=== PATIENT | male | born 1960 | race Caucasian/White ===

== ENCOUNTER 2021-11-25 03:54 | Inpatient (IN) | payer MEDICARE, OTHER ==
[~2021-11-25] VITALS: Ht 180.3 cm; Wt 121.7 kg
[~2021-11-25 03:54] MED LIST: CIPR500T2 PO; CYCL10TA19 PO; DOCU100T11 PO; OXYC1TAB15 PO; Oxycodone Hcl/Acetaminophen PO; TAMS0.4C97 PO
[2021-11-25] MEDS ORDERED: NITROGLYCERIN SUBLINGUAL 0.4 MG BOTTLE OF 25. SL PRN ×2 (04:15→05:45)
[2021-11-25] MEDS ORDERED: MORPHINE SULFATE 2 MG/ML INJ. IVP ONE (04:15)
[2021-11-25 04:27] LABS: BASO # 0.1 x10^3/uL (0.0-0.2); BASO % 1 % (0-3); EOS # 0.1 x10^3/uL (0.0-0.7); EOS % 1 % (0-3); HEMATOCRIT 43.8 % (39.0-53.0); HEMOGLOBIN 14.4 g/dL (13.0-17.5); LYMPH # 1.6 x10^3/uL (1.0-4.8); LYMPH % 25 % (24-48); MEAN CORPUSCULAR HEMOGLOBIN 30 pg (25-35); MEAN CORPUSCULAR HGB CONC 33 g/dL (31-37); MEAN CORPUSCULAR VOLUME 91 fL (79-100); MONO # 0.4 x10^3/uL (0.0-1.1); MONO % 7 % (0-9); NEUT # 4.2 x10^3/uL (1.8-7.7); NEUT % 66 % (31-73); PLATELET COUNT 134 x10^3/uL (140-400); RED BLOOD COUNT 4.82 x10^6/uL (4.30-5.70); RED CELL DISTRIBUTION WIDTH 13.7 % (11.5-14.5); WHITE BLOOD COUNT 6.3 x10^3/uL (4.0-11.0)
[2021-11-25] MEDS: NITROGLYCERIN SUBLINGUAL 0.4 MG BOTTLE OF 25. SL PRN ×5 (04:32→17:10)
[2021-11-25 04:37] LABS: CALCIUM 9.4 mg/dL (8.5-10.1); CREATININE 1.2 mg/dL (0.7-1.3); GFR 61.3; POTASSIUM 3.6 mmol/L (3.5-5.1)
[2021-11-25 04:42] LABS: PROTHROMBIN TIME PATIENT 13.5 SEC (11.7-14.0)
[2021-11-25 04:43] LABS: ALBUMIN 3.4 g/dL (3.4-5.0); ALBUMIN/GLOBULIN RATIO 0.9 (1.0-1.7); TOTAL BILIRUBIN 0.5 mg/dL (0.2-1.0)
--- NOTE | 2021-11-25 04:51 | RAD ---
EXAM: XR CHEST 1V 11/25/2021 4:17 AM CLINICAL INDICATION: Chest pain COMPARISON: None TECHNIQUE: AP upright view of the chest FINDINGS: The heart is normal in size. Lungs are well-expanded. No consolidation, pleural effusion, or pneumothorax. IMPRESSION: No acute cardiopulmonary abnormality. Electronically signed by: Gena Sabillon MD (11/25/2021 4:48 AM) [facility]
[2021-11-25 04:57] LABS: D-DIMER 0.39 ug/mlFEU (0.00-0.50)
--- NOTE | 2021-11-25 05:36 | PHYS DOC ---
Past Medical History Past Medical History: Kidney Stone, Other Additional Past Medical Histor: HEPATITIS C Past Surgical History: Tonsillectomy, Other Additional Past Surgical Histo: Knee surgery, cervical fusion Smoking Status: Current Every Day Smoker Alcohol Use: Occasionally Drug Use: None Adult General Chief Complaint Chief Complaint: CHEST PAIN-CARDIAC NATURE HPI HPI The patient is a 61-year-old male with a history of tobacco abuse and without o ther known medical problems for which he takes daily medications. He presents for evaluation of dull, pressure-like retrosternal nonexertional and nonpleuritic chest discomfort with radiation to the left arm with onset at 9 PM. Associated nausea and diaphoresis. Patient waited a few hours and when symptoms had not improved, elected emergency department evaluation. Severity of discomfort 10 out of 10 prior to sublingual nitroglycerin and aspirin administered by EMS. Severity of discomfort about 4 out of 10 on arrival here. EKG nonischemic. Vital signs generally appropriate aside from borderline oxygen saturation on room air. Review of Systems Review of Systems A 12 point review of systems was completed and was negative except where noted in HPI above. Current Medications Current Medications Current Medications Medications (Trade) Dose Ordered Sig/Veronica Start Time Stop Time Status Last Admin Dose Admin Morphine Sulfate (Morphine Sulfate) 2 mg 1X ONCE 11/25/21 04:15 11/25/21 04:17 DC 11/25/21 04:27 2 MG Nitroglycerin (Nitrostat) 0.4 mg PRN Q5MIN PRN 11/25/21 04:15 Allergies Allergies Allergies Coded Allergies Type Severity Reaction Last Updated Verified codeine Adverse Reaction Intermediate nausea and vomiting 11/25/21 Yes Physical Exam Physical Exam 61-year-old male appearing nontoxic and in no acute distress. Head is normocephalic and atraumatic. Neck is supple and nontender. Oropharynx is moist. Lungs are clear to auscultation at all stations. There is a normal S1 and S2 without rubs or gallops and capillary refill is appropriate, less than 2 seconds globally. Abdomen is soft, nontender and nondistended. Skin is warm and dry and without cyanosis, clubbing or edema. Psychiatrically, the patient demonstrates appropriate mood and affect and is alert. Evaluation of the extremities reveals BUEs and BLEs neurovascularly intact distally with strength out of 5, sensation intact light touch in all nerve distributions, radial, DP and PT pulses 2+ and equal bilaterally, capillary refill less than 2 seconds, hands and feet warm and well-perfused. No dependent peripheral edema distally. No calf tenderness or swelling bilaterally. Homans test negative bilaterally. Current Patient Data Vital Signs Vital Signs Date Time Temp Pulse Resp B/P (MAP) Pulse Ox O2 Delivery O2 Flow Rate FiO2 11/25/21 04:56 69 163/82 11/25/21 04:27 20 94 Nasal Cannula 2.0 11/25/21 03:55 97.4 97.4 Lab Values Laboratory Tests Test 11/25/21 04:20 White Blood Count 6.3 x10^3/uL (4.0-11.0) Red Blood Count 4.82 x10^6/uL (4.30-5.70) Hemoglobin 14.4 g/dL (13.0-17.5) Hematocrit 43.8 % (39.0-53.0) Mean Corpuscular Volume 91 fL (79-100) Mean Corpuscular Hemoglobin 30 pg (25-35) Mean Corpuscular Hemoglobin Concent 33 g/dL (31-37) Red Cell Distribution Width 13.7 % (11.5-14.5) Platelet Count 134 x10^3/uL (140-400) L Neutrophils (%) (Auto) 66 % (31-73) Lymphocytes (%) (Auto) 25 % (24-48) Monocytes (%) (Auto) 7 % (0-9) Eosinophils (%) (Auto) 1 % (0-3) Basophils (%) (Auto) 1 % (0-3) Neutrophils # (Auto) 4.2 x10^3/uL (1.8-7.7) Lymphocytes # (Auto) 1.6 x10^3/uL (1.0-4.8) Monocytes # (Auto) 0.4 x10^3/uL (0.0-1.1) Eosinophils # (Auto) 0.1 x10^3/uL (0.0-0.7) Basophils # (Auto) 0.1 x10^3/uL (0.0-0.2) Prothrombin Time 13.5 SEC (11.7-14.0) Prothrombin Time INR 1.1 (0.8-1.1) Activated Partial Thromboplast Time 35 SEC (24-38) D-Dimer (Tammy) 0.39 ug/mlFEU (0.00-0.50) Sodium Level 135 mmol/L (136-145) L Potassium Level 3.6 mmol/L (3.5-5.1) Chloride Level 102 mmol/L (98-107) Carbon Dioxide Level 24 mmol/L (21-32) Anion Gap 9 (6-14) Blood Urea Nitrogen 11 mg/dL (8-26) Creatinine 1.2 mg/dL (0.7-1.3) Estimated GFR (Cockcroft-Gault) 61.3 BUN/Creatinine Ratio 9 (6-20) Glucose Level 224 mg/dL (70-99) H Calcium Level 9.4 mg/dL (8.5-10.1) Total Bilirubin 0.5 mg/dL (0.2-1.0) Aspartate Amino Transferase (AST) 18 U/L (15-37) Alanine Aminotransferase (ALT) 37 U/L (16-63) Alkaline Phosphatase 100 U/L (46-116) Troponin I High Sensitivity 255 ng/L (4-75) H BI-Iwt-I-Type Natriuretic Peptide 269 pg/mL (0-124) H Total Protein 7.0 g/dL (6.4-8.2) Albumin 3.4 g/dL (3.4-5.0) Albumin/Globulin Ratio 0.9 (1.0-1.7) L Laboratory Tests 11/25/21 04:20 Laboratory Tests 11/25/21 04:20 EKG EKG Sinus rhythm, rate 65, first-degree AV block, no acute ST elevation or depression, UT 206, QRS 84, QTc 442, EP interpretation. Nonischemic tracing. Radiology/Procedures Radiology/Procedures EXAM: XR CHEST 1V 11/25/2021 4:17 AM CLINICAL INDICATION: Chest pain COMPARISON: None TECHNIQUE: AP upright view of the chest FINDINGS: The heart is normal in size. Lungs are well-expanded. No consolidation, pleural effusion, or pneumothorax. IMPRESSION: No acute cardiopulmonary abnormality. Electronically signed by: Gena Sabillon MD (11/25/2021 4:48 AM) [facility] DICTATED and SIGNED BY: GENA SABILLON MD DATE: 11/25/21 1921 Course & Med Decision Making Course & Med Decision Making Work-up as above is notable primarily for evidence of NSTEMI with significantly elevated high-sensitivity troponin. Overall scenario is most consistent with Type I NSTEMI. Patient received a full-strength aspirin and nitroglycerin on the way here. Will initiate heparin and plan for admission for cardiology consultation, likely cardiac catheterization and further care. Dr. Ghosh graciously accepts. Critical care time was 47 minutes. Dragon Disclaimer Dragon Disclaimer This electronic medical record was generated, in whole or in part, using a voice recognition dictation system. Departure Departure Impression: Primary Impression: NSTEMI (non-ST elevated myocardial infarction) Disposition: ADMITTED INPATIENT Condition: GUARDED Referrals: SUSAN GHOSH MD (PCP) JAREK BATES MD Nov 25, 2021 05:36
[2021-11-25] MEDS ORDERED: ONDANSETRON PF 4 MG/2 ML VIAL. IVP PRN (05:45)
[2021-11-25] MEDS ORDERED: HEPARIN for IV BOLUS 10,000 UNIT/10 ML VIAL. IV PRN (05:45)
[2021-11-25] MEDS ORDERED: HEPARIN for IV BOLUS 10,000 UNIT/10 ML VIAL. IV ONE (05:45)
[2021-11-25] MEDS ORDERED: HEPARIN 25,000UTS/250ML PREMIX 250 ML IV PRN (05:45)
[2021-11-25] MEDS: fentaNYL PF VIAL 100 MCG/2 ML VIAL IVP PRN ×5 (06:01→19:28)
[2021-11-25 06:35] VITALS: BP 175/88
[2021-11-25] MEDS ORDERED: IODIXANOL 320 MG/ML 100 ML VIAL. ONE ×3 (07:49→10:15)
[2021-11-25] MEDS ORDERED: LIDOCAINE 1% PF 2 ML VIAL. ONE (07:49)
[2021-11-25] MEDS ORDERED: HEPARIN for ARTERIAL LINE 1,500 ML ONE (07:49)
--- NOTE | 2021-11-25 08:30 | PDOC2 ---
CARDIOLOGY CONSULT NOTE DATE OF SERVICE: DATE: 11/25/21 TIME: 08:27 CHIEF COMPLAINT: Chest discomfort HPI: Femi is a pleasant 61-year-old man who comes into the hospital with acute onset of chest pain yesterday evening. He reports pain at approximately 10 out of 10 that started at 11 PM last night requiring him to call 911. Upon arrival of the emergency services he was given aspirin and nitroglycerin which helped subside his pain. Initial evaluation in the ER demonstrated no acute EKG changes but the patient was noted to have an elevated troponin who was started on appropriate medical therapy and admitted to the floor for further evaluation. This morning the patient continues to complain of left-sided chest pain approximately 3 out of 10. He denies any significant associated alleviating or aggravating factors. No syncope or palpitations. At baseline the patient is mostly sedentary due to prior Workmen's Comp. issue including cervical spine surgery. No prior cardiovascular history PMHX: No significant past medical history SOCHX: Patient is . Denies any alcohol but does smoke. He also uses marijuana occasionally. FAMHX: Noncontributory CURRENT MEDS: Current Medications Medications (Trade) Dose Ordered Sig/Veronica Route PRN Reason Start Time Stop Time Status Last Admin Dose Admin Nitroglycerin (Nitrostat) 0.4 mg PRN Q5MIN PRN SL CHEST PAIN 11/25/21 04:15 11/25/21 04:56 Morphine Sulfate (Morphine Sulfate) 2 mg 1X ONCE IVP 11/25/21 04:15 11/25/21 04:17 DC 11/25/21 04:27 Heparin Sodium (Porcine) (Heparin Sodium) 4,000 unit 1X ONCE IV 11/25/21 05:45 11/25/21 05:46 DC 11/25/21 06:05 Heparin Sodium/ Dextrose 250 ml @ 14.172 mls/ hr CONT PRN IV PER PROTOCOL 11/25/21 05:45 11/25/21 06:08 Fentanyl Citrate (Fentanyl 2ml Vial) 50 mcg PRN Q2HR PRN IVP PAIN 11/25/21 05:45 11/25/21 06:01 ALLERGIES: Allergies Coded Allergies Type Severity Reaction Last Updated Verified codeine Adverse Reaction Intermediate nausea and vomiting 11/25/21 Yes ROS: Negative for 10 out of 14 systems reviewed unless otherwise mentioned above in HPI PHYSICAL EXAM: Vital Signs/I&O: Vital Signs Date Time Temp Pulse Resp B/P (MAP) Pulse Ox O2 Delivery O2 Flow Rate FiO2 11/25/21 06:35 97.9 68 20 175/88 (117) 97 Room Air 97.9 11/25/21 06:34 2.0 Physical Exam: The patient appeared well nourished and normally developed. Head exam is unremarkable. No scleral icterus or corneal arcus noted. Neck is without jugular venous distension, thyromegaly, or carotid bruits. Carotid upstrokes are brisk bilaterally. Lungs are clear to auscultation and percussion. Cardiac exam reveals the PMI to be normally sized and situated. Rhythm is regular. First and second heart sounds normal. No murmurs, rubs or gallops. Abdominal exam reveals normal bowel sounds, no masses, no organomegaly and no aortic enlargement. Extremities are nonedematous and both femoral and pedal pulses are normal. Msk: No traumua Neuro: No focal deficits DIAGNOSTIC TESTING: Troponin minimally elevated EKG is not available for review but based on the ER physician signout the EKG was unremarkable Lab Laboratory studies reviewed ASSESSMENT: 1. Acute coronary syndrome with presumed non-ST elevation PR PLAN: 1. Plan for cardiac catheterization. Risks and benefits discussed with the patient and his and they are agreeable to proceed. STEPHEN LATIF MD Nov 25, 2021 08:30
--- NOTE | 2021-11-25 08:31 | PDOC ---
MODERATE SEDATION ASSESSMENT RISKS/ALTERNATIVES Risks/Alternatives Risks and alternatives of this type of sedation and procedure discussed with: RISK/ALTERNATIVES: Patient H & P ON CHART H & P H & P on chart and reviewed for co-morbid conditions and appropriate labs. H&P ON CHART: Yes STATUS PREG STATUS ASSESSED: N/A MEDS/ALLERGIES REVIEWED Meds/Allergies Reviewed Medications and Allergies including time and route of recently administered narcotics and sedatives. MEDS/ALLERGIES REVIEWED: Yes ASA RATING ASA RATING: II AIRWAY ASSESSMENT Airway Assessment Airway patency, oral function limitations, presence of caps, crowns, dentures, partials, and ability to extend neck assessed. AIRWAY ASSESSMENT: Yes MALLAMPATI SCORE MALLAMPATI SCORE: II PRE-SEDATION ASSESSMENT PRE-SEDATION ASSESSMENT: Yes STEPHEN LATIF MD Nov 25, 2021 08:31
--- NOTE | 2021-11-25 08:32 | PDOC ---
Provider Note Date of Service: DATE: 11/25/21 TIME: 08:30 Provider Note [id number] Justifications for Admission Other Justification SCOTTY WALLS MD Nov 25, 2021 08:32
[2021-11-25] MEDS ORDERED: fentaNYL PF VIAL 100 MCG/2 ML VIAL ONE ×2 (08:52→09:25)
[2021-11-25] MEDS ORDERED: NITROGLYCERIN 200 MCG/2 ML SYRINGE FOR CATH/VASC LAB. ONE ×4 (08:52→10:17)
[2021-11-25] MEDS ORDERED: VERAPAMIL 5 MG/2 ML VIAL. ONE (08:52)
[2021-11-25] MEDS ORDERED: MIDAZOLAM HCL/PF 2 MG/2 ML VIAL. ONE ×2 (08:52→09:25)
[2021-11-25] MEDS ORDERED: HEPARIN for IV BOLUS 10,000 UNIT/10 ML VIAL. ONE (08:52)
[2021-11-25] MEDS ORDERED: LIDOCAINE 1% Multi-Dose 20 ML VIAL. ONE (09:23)
[2021-11-25] MEDS ORDERED: TIROFIBAN 5MG -0.9% NS 100 ML IV ONE (09:35)
[2021-11-25] MEDS ORDERED: LIDOCAINE 2% Multi-Dose 20 ML VIAL. IJ ONE (10:00)
[2021-11-25] MEDS ORDERED: LIDOCAINE 1% PF 2 ML VIAL. INJ ONE (10:00)
[2021-11-25] MEDS ORDERED: NITROGLYCERIN 200 MCG/2 ML SYRINGE FOR CATH/VASC LAB. IART ONE (10:00)
[2021-11-25] MEDS ORDERED: IODIXANOL 320 MG/ML 100 ML VIAL. IART ONE (10:00)
[2021-11-25] MEDS ORDERED: VERAPAMIL 5 MG/2 ML VIAL. IART ONE (10:00)
[2021-11-25] MEDS ORDERED: fentaNYL PF VIAL 100 MCG/2 ML VIAL IV ONE (10:00)
[2021-11-25] MEDS ORDERED: TIROFIBAN 5MG -0.9% NS 100 ML IV PRN (10:00)
[2021-11-25] MEDS ORDERED: MIDAZOLAM HCL/PF 2 MG/2 ML VIAL. IV ONE (10:00)
[2021-11-25] MEDS ORDERED: HEPARIN for IV BOLUS 10,000 UNIT/10 ML VIAL. IART ONE (10:00)
[2021-11-25] MEDS ORDERED: hydrALAZINE 20 MG/ML VIAL. ONE (10:09)
[2021-11-25] MEDS ORDERED: PRASUGREL 10 MG TABLET. ONE (10:25)
[2021-11-25] MEDS ORDERED: PRASUGREL 10 MG TABLET. PO ONE (10:30)
[2021-11-25] MEDS ORDERED: hydrALAZINE 20 MG/ML VIAL. IVP ONE ×2 (10:30→18:45)
--- NOTE | 2021-11-25 10:41 | HP ---
DATE OF SERVICE: 11/25/2021 ADMIT DATE: 11/25/2021 CHIEF COMPLAINT: Chest pain. HISTORY OF PRESENT ILLNESS: A 61-year-old white male patient of Dr. Ghosh, has no previous cardiovascular history, sleeping, was awakened by fairly substantial pressure like mid chest pain that radiated to his left neck, shoulder and arm. Ambulance came and after a couple of nitroglycerin and aspirin, his pain subsided to some degree and it is better now. He has had no recent exertional chest pain or any other new symptoms. EKGs were normal, but troponin was mildly elevated to 255 on first lab draw. MEDICATIONS: No home meds. ALLERGIES: CODEINE. PAST MEDICAL HISTORY: No previous cardiovascular history. PAST SURGICAL HISTORY: He has had orthopedic surgeries. SOCIAL HISTORY: Smokes about a pack a day since teenage years. , light alcohol drinker, employed. FAMILY HISTORY: Unremarkable. REVIEW OF SYSTEMS: No other complaints. PHYSICAL EXAMINATION: ENT: All within normal limits. NECK: No bruits, nodes or masses. LUNGS: Clear. CARDIOVASCULAR: Regular rate. No irregular beat or murmur. ABDOMEN: Benign, nontender. EXTREMITIES: Excellent pedal and radial pulses. No clubbing, cyanosis or edema. NEUROLOGIC: Physiologic and nonfocal. ASSESSMENT: Chest pain, suspicious for unstable angina or non-ST elevated myocardial infarction. PLAN: Dr. Clark plans cardiac cath today to further evaluate source of the pain, which most certainly is ischemic in nature. KOJO/FERNANDEZ/IRINA CARTER: KOJO/janel TID: [id number]
[2021-11-25] MEDS ORDERED: IV NORMAL SALINE 1000ML BAG 1,000 ML IV ONE (10:45)
[2021-11-25 10:46] VITALS: BP 172/84
--- NOTE | 2021-11-25 13:46 | EKG ---
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
[2021-11-25 15:00] VITALS: BP 139/83
[2021-11-25] MEDS: CARVEDILOL 3.125 MG TABLET. PO SCH (16:14)
[2021-11-25] MEDS: ASPIRIN ENTERIC COATED 81 MG TABLET.DR. PO SCH (16:14)
[2021-11-25] MEDS ORDERED: LABETALOL 20 MG/4 ML DISP.SYRIN. IVP PRN (18:45)
[2021-11-25 19:10] VITALS: BP 201/81
[2021-11-25 19:30] VITALS: BP 161/76
[2021-11-25] MEDS ORDERED: ALPRAZolam 0.5 MG TABLET PO PRN (19:45)
[2021-11-25] MEDS ORDERED: ATORVASTATIN CALCIUM 40 MG TABLET. PO SCH (21:00)
--- NOTE | 2021-11-25 21:47 | NUR ---
Admit for CP. Had heart cath this morning. Stent to LAD and 2 stents to RCA. Reports pain to right wrist cath site and right groin cath site but admits to having anxiety more then pain. Gave Fentanyl for pain. Spoke to Dr Ghosh. Obtained orders for prn Xanax. Gave Xanax as ordered. Patient is sleeping at this time. BP improved. Call light at hand.
[2021-11-25 22:40] VITALS: BP 149/75
[2021-11-26 03:50] VITALS: BP 148/83
[2021-11-26 05:56] LABS: BASO % 1 % (0-3); EOS % 1 % (0-3); HEMATOCRIT 44.6 % (39.0-53.0); HEMOGLOBIN 14.8 g/dL (13.0-17.5); LYMPH # 1.8 x10^3/uL (1.0-4.8); LYMPH % 25 % (24-48); MEAN CORPUSCULAR HEMOGLOBIN 30 pg (25-35); MEAN CORPUSCULAR HGB CONC 33 g/dL (31-37); MEAN CORPUSCULAR VOLUME 91 fL (79-100); MONO # 0.7 x10^3/uL (0.0-1.1); MONO % 9 % (0-9); NEUT # 4.8 x10^3/uL (1.8-7.7); NEUT % 65 % (31-73); PLATELET COUNT 159 x10^3/uL (140-400); RED BLOOD COUNT 4.88 x10^6/uL (4.30-5.70); RED CELL DISTRIBUTION WIDTH 13.9 % (11.5-14.5); WHITE BLOOD COUNT 7.3 x10^3/uL (4.0-11.0)
[2021-11-26 06:09] LABS: ALBUMIN 3.2 g/dL (3.4-5.0); ALBUMIN/GLOBULIN RATIO 0.9 (1.0-1.7); CALCIUM 8.7 mg/dL (8.5-10.1); CREATININE 1.2 mg/dL (0.7-1.3); GFR 61.3; POTASSIUM 3.6 mmol/L (3.5-5.1); TOTAL BILIRUBIN 0.7 mg/dL (0.2-1.0); TOTAL PROTEIN 6.8 g/dL (6.4-8.2)
[2021-11-26 06:12] LABS: CHOLESTEROL/HDL RATIO 5.8
[2021-11-26 07:00] VITALS: BP 146/73
--- NOTE | 2021-11-26 07:16 | CARD ---
MR#: [id number] Date of Study: 11/25/2021 Ordering Physician: STEPHEN CLARK, Referring Physician: STEPHEN CLARK, Tech: Meredith Roy RTR APPROVED REPORT Technologist: Meredith Roy RTR Nurse: Bel Fong RN Procedure(s) performed: FLuoro time: 16.4 min dose: 221.7 gycm2 contrast: 256cc moderate sedation: 95min LHC, Coronary angiography Complex PCI of the LAD with IVUS Complex PCI of the RCA with IVUS HISTORY The patient is a 61 year-old male with a history of : tobacco history() , hypertension, dyslipidemia. INDICATION The indication(s) include : non-STEMI . [facility] Clinical Frailty Scale [facility] Clinical Frailty Scale: Mildly Frail Heart Failure Heart Failure: No CASE TECHNIQUE IV conscious sedation was used throughout procedure with appropriate monitoring and was performed in the presence of a registered nurse who was an independent trained observer other than the physician p erforming the procedure. During this case, Fluoroscopy and low osmolar contrast were used for imaging . Specimen(s) Removed: N/A Estimated Blood loss: 20 cc's. PROCEDURE NARRATIVE Clinical information: 61-year-old male presented to the catheterization laboratory in the setting of non-ST elevation LA an d classic symptoms suggestive of angina. Procedure details: After proper informed consent the right wrist and right groin were prepped and draped in usual steril e fashion. Next, a 6 Afghan sheath was placed in the right radial artery via the modified Seldinger technique. Next, advancement of a 6 Afghan and 5 Afghan TIG catheters through the upper extremity we re unsuccessful due to significant arterial spasm. Therefore, the radial access site was abandoned i n favor of femoral artery access. Under 1% lidocaine local anesthesia a 6 Afghan sheath was placed i n the right common femoral artery via the modified Seldinger technique. Diagnostic angiography was t hen performed with a 6 Afghan JL4, JR4 and pigtail catheters. Left ventricular end-diastolic pressur e was obtained with a pigtail catheter and a pullback was performed. Findings: Aorta 170/80 LVEDP 18 mmHg No LV to aortic pullback gradient Coronary angiography: Left main is a short large-caliber vessel with normal angiographic appearance LAD is a large-caliber vessel with a proximal 90% stenosis D1 is a moderate caliber vessel with mild luminal irregularities Left circumflex is a large-caliber vessel with mild luminal irregularities of up to 20% OM1 is a moderate to large caliber vessel with a proximal 50% stenosis RCA is a large caliber dominant vessel with a long diffuse proximal to mid 80% stenosis RPDA is a moderate caliber vessel with normal angiographic appearance Interventional technique: Complex PCI of the proximal LAD with intravascular ultrasound guidance Heparin and tirofiban were used for anticoagulation. Through a 6 Afghan EBU 3.75 guide catheter a Pr owater wire was placed in the distal LAD. Next, balloon angioplasty was performed with a 3.5 mm ball oon and the lesion was ultimately stented after intravascular ultrasound guidance revealed a diameter of 5 mm with a 5.0 x 18 mm resolute drug-eluting stent. Final angiography demonstrated excellent st ent expansion with RENE-3 flow in the vessel no evidence of wire or guide related complications. Interventional technique: Complex PCI of the RCA with intravascular ultrasound guidance Heparin and tirofiban were continued and through a 6 Afghan JR4 guide catheter a Prowater wire was pl aced in the distal RCA. Next, balloon angioplasty was performed with a 3.5 mm balloon and intravascu lar ultrasound guidance revealed a 4 to 4.5 mm vessel from the proximal to mid segment. Therefore, t he right coronary artery was stented in overlapping fashion with a 4.0 x 38 mm and a 4.5 x 30 mm reso lute drug-eluting stents. The overlap segment was postdilated to a 4.25 mm segment. Final angiograp hy demonstrated excellent stent expansion with RENE-3 flow in the vessel no evidence of guidewire rel ated complications. At case completion catheters and wires were removed and hemostasis was achieved in the right groin wi th a Angio-Seal device and the right radial sheath was removed and hemostasis was achieved with a Ter umo radial band. The patient received prasugrel 60 mg at case completion. No acute complications. PCI Technique Lesion Percutaneous coronary intervention was performed on the proximal left anterior descending artery segm ent. RENE Flow RENE Flow (Pre-Intervention): RENE-2 RENE Flow (Post-Intervention): RENE-3 PCI Technique Lesion 2 Percutaneous Coronary Intervention was performed on the mid right coronary arterymid right coronary a rterymid right coronary artery. RENE Flow RENE Flow (Pre-Intervention): RENE-3 RENE Flow (Post-Intervention): RENE-3 Conclusion 1. Acute on chronic diastolic heart failure 2. Complex two-vessel coronary artery disease 3. Successful PCI of the LAD with implantation of a 5.0 x 18 mm resolute drug-eluting stent 4. Successful PCI of the RCA with implantation of overlapping 4.0 x 38 and 4.5 x 30 mm resolute drug -eluting stents. Recommendations 1. Aspirin 81 mg daily indefinitely 2. Prasugrel 10 mg daily at least for 1 full year 3. High-dose statin therapy and cardiac rehabilitation referral. 4. Aggressive risk factor modification with smoking cessation Signed by : tSephen Clark, Electronically Approved : 11/26/2021 07:16:20
--- NOTE | 2021-11-26 08:09 | PN ---
DATE: 11/26/2021 He is in room 676. SUBJECTIVE: This 61-year-old male hospitalized with chest discomfort and non-ST elevated myocardial infarction. He had elevated troponins, has been taken for heart catheterization yesterday where he had stenting of the LAD and right coronary artery. He had some anxiety following which Xanax has helped. He had a good night's sleep, feels much better today and is anticipating discharge, Cardiology sees him. He is currently motivated to quit smoking and get on a better diet and exercise program at discharge. OBJECTIVE: VITAL SIGNS: Stable. He is afebrile. GENERAL: He is awake and alert. is present. CHEST: Clear to auscultation. HEART: Regular rate and rhythm. ABDOMEN: Benign. ASSESSMENT: 1. Non-ST elevated myocardial infarction with coronary artery disease and stenting as above. 2. Elevated blood pressures, but improved this morning. PLAN: Anticipate possible discharge later today with routine followup care. CHEKO DR: Angel TID: [id number]
[2021-11-26] MEDS: ASPIRIN ENTERIC COATED 81 MG TABLET.DR. PO SCH (08:21)
[2021-11-26] MEDS: CARVEDILOL 3.125 MG TABLET. PO SCH (08:22)
[2021-11-26 11:00] VITALS: BP 155/78
[2021-11-26] MEDS ORDERED: PERFLUTREN PROTEIN-A MICROSPHR 0.22 MG/ML 3 ML VIAL. IV ONE ×2 (12:37→13:00)
[2021-11-26] MEDS ORDERED: PRASUGREL 10 MG TABLET. PO SCH (13:00)
--- NOTE | 2021-11-26 13:40 | PDOC ---
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0) Red Blood Count 4.88 x10^6/uL (4.30-5.70) Hemoglobin 14.8 g/dL (13.0-17.5) Hematocrit 44.6 % (39.0-53.0) Mean Corpuscular Volume 91 fL (79-100) Mean Corpuscular Hemoglobin 30 pg (25-35) Mean Corpuscular Hemoglobin Concent 33 g/dL (31-37) Red Cell Distribution Width 13.9 % (11.5-14.5) Platelet Count 159 x10^3/uL (140-400) Neutrophils (%) (Auto) 65 % (31-73) Lymphocytes (%) (Auto) 25 % (24-48) Monocytes (%) (Auto) 9 % (0-9) Eosinophils (%) (Auto) 1 % (0-3) Basophils (%) (Auto) 1 % (0-3) Neutrophils # (Auto) 4.8 x10^3/uL (1.8-7.7) Lymphocytes # (Auto) 1.8 x10^3/uL (1.0-4.8) Monocytes # (Auto) 0.7 x10^3/uL (0.0-1.1) Eosinophils # (Auto) 0.0 x10^3/uL (0.0-0.7) Basophils # (Auto) 0.0 x10^3/uL (0.0-0.2) Sodium Level 137 mmol/L (136-145) Potassium Level 3.6 mmol/L (3.5-5.1) Chloride Level 104 mmol/L (98-107) Carbon Dioxide Level 23 mmol/L (21-32) Anion Gap 10 (6-14) Blood Urea Nitrogen 8 mg/dL (8-26) Creatinine 1.2 mg/dL (0.7-1.3) Estimated GFR (Cockcroft-Gault) 61.3 BUN/Creatinine Ratio 7 (6-20) Glucose Level 161 mg/dL (70-99) Calcium Level 8.7 mg/dL (8.5-10.1) Total Bilirubin 0.7 mg/dL (0.2-1.0) Aspartate Amino Transf (AST/SGOT) 28 U/L (15-37) Alanine Aminotransferase (ALT/SGPT) 35 U/L (16-63) Alkaline Phosphatase 95 U/L (46-116) Total Protein 6.8 g/dL (6.4-8.2) Albumin 3.2 g/dL (3.4-5.0) Albumin/Globulin Ratio 0.9 (1.0-1.7) Triglycerides Level 155 mg/dL (0-150) Cholesterol Level 191 mg/dL (0-200) LDL Cholesterol, Calculated 127 mg/dL (0-100) VLDL Cholesterol, Calculated 31 mg/dL (0-40) Non-HDL Cholesterol Calculated 158 mg/dL (0-129) HDL Cholesterol 33 mg/dL (40-60) Cholesterol/HDL Ratio 5.8 Physical Exam HEENT: Neck Supple W Full Motion Chest: Symmetric LUNGS: Clear to Auscultation Heart: S1S2, RRR (SR) Abdomen: Soft N/T Extremities: No Calf Tenderness Neurology: alert, oriented, follow commands Assessment Assessment 1. NSTEMI/ACS: S/P PCI/JAMIN to LAD and RCA 2. Acute on chronic diastolic heart failure 3. HLP 4. Hyperglycemia: defer to PCP 5. Obesity Recommendations 1. Aspirin 81 mg daily indefinitely. Prasugrel 10 mg daily at least for 1 full year 2. High-dose statin therapy and cardiac rehabilitation referral. 3. Smoking cessation 4. continue coreg 5. Follow up with Dr. Latif January 09Wednesday at 1:30 PM Justicifation of Admission Dx: Justifications for Admission: Justification of Admission Dx: Yes STEPHEN LATIF MD 11/26/21 2211: CARDIO Progress Notes Plan Plan Echo reviewed. Medications reviewed. Discussed importance of f/u. The patient was seen and interviewed as well as examined at the bedside. The chart was reviewed. The case was discussed. Agree with the plan of care. LUCIANO CONROY APRN Nov 26, 2021 13:40 STEPHEN LATIF MD Nov 26, 2021 22:11
[2021-11-26] MEDS ORDERED: ASPI-886 PO (14:34)
[2021-11-26] MEDS ORDERED: PRAS10TA9 PO (14:34)
[2021-11-26] MEDS ORDERED: CARV3.1210 PO (14:34)
[2021-11-26] MEDS ORDERED: ATOR40TA59 PO (14:34)
[2021-11-26] MEDS ORDERED: NITR0.4T24 SL (14:34)
--- NOTE | 2021-11-26 16:37 | CARD ---
MR#: [id number] Date of Study: 11/26/2021 Ordering Physician: LUCIANO CONROY, Referring Physician: LUCIANO CONROY Tech: Thea Martinez [facility] APPROVED REPORT EXAM: Two-dimensional and M-mode echocardiogram with Doppler and color Doppler. Other Information Quality : Technically LimitedHR: 83bpm Rhythm : NSR INDICATION Cardiac Disease: CAD Echo Enhancing Agent Indication: Endocardial border delineation Agent/Amount Used: Optison 3mL RISK FACTORS Hypertension Obesity Hyperlipidemia 2D DIMENSIONS RVDd3.8 (2.9-3.5cm) Aortic Valve AoV Peak Roshan.120.8cm/sAoV VTI21.2cm AO Peak GR.5.8mmHgLVOT Peak Roshan.65.3cm/s AO Mean GR.3mmHg Mitral Valve MV E Ebsguekc57.7cm/sMV DECEL YEKB744an MV A Skmkbnir18.3cm/sE/A Ratio0.7 LEFT VENTRICLE The left ventricle is normal size. The left ventricular systolic function is normal. Estimated ejecti on fraction 55-60%. There is normal LV segmental wall motion. Transmitral Doppler flow pattern is Gra de I-abnormal relaxation pattern. RIGHT VENTRICLE The right ventricle is normal size. There is normal right ventricular wall thickness. The right ventr icular systolic function is normal. ATRIA The left atrium size is normal. The right atrium size is normal. The interatrial septum is intact wit h no evidence for an atrial septal defect or patent foramen ovale as noted on 2-D or Doppler imaging. AORTIC VALVE The aortic valve is normal in structure and function. Doppler and Color Flow revealed no significant aortic regurgitation. There is no significant aortic valvular stenosis. MITRAL VALVE The mitral valve is normal in structure and function. There is no evidence of mitral valve prolapse. There is no mitral valve stenosis. Doppler and Color Flow revealed no mitral valve regurgitation note d. TRICUSPID VALVE The tricuspid valve is normal in structure and function. Doppler and Color Flow revealed no tricuspid valve regurgitation noted. There is no tricuspid valve stenosis. GREAT VESSELS The aortic root is normal in size. Due to poor image quality, the IVC could not be assessed. PERICARDIAL EFFUSION There is no evidence of significant pericardial effusion. Critical Notification Critical Value: No <Conclusion> Technically difficult study. Valves poorly visualized. Optison echo contrast used. The left ventricular systolic function is normal. Estimated ejection fraction 55-60%. There is normal LV segmental wall motion. Transmitral Doppler flow pattern is Grade I-abnormal relaxation pattern. There is no evidence of significant pericardial effusion. Signed by : Jhon Frost, Electronically Approved : 11/26/2021 16:37:28
--- NOTE | 2021-11-26 20:28 | DS ---
DATE OF DISCHARGE: 11/26/2021 PRIMARY DIAGNOSIS: [id number] myocardial infarction. ADDITIONAL DIAGNOSIS: Coronary artery disease. CHIEF COMPLAINT AND HISTORY OF PRESENT ILLNESS: This 61-year-old male awoke in the morning with chest pain, which he knew had to be his heart, requested an ambulance and was brought to the Emergency Room where he had an elevated troponin that increased after initial evaluation and was admitted for non-ST myocardial infarction. SUMMARY OF STAY: The patient was admitted. Cardiology saw, took him to the director of cath lab where he had stenting of his LAD as well as his right coronary artery. Symptomatology was resolved with the same. He was a little anxious later in the day and was given some Xanax, but was felt great on the day of dismissal and was ready to go and with Cardiology's approval, discharge was done. DISPOSITION: The patient is discharged to home. DIET: Cardiac diet. ACTIVITY: As tolerated, office in 2 weeks. DISCHARGE MEDICATIONS: Listed on the med rec and have been addressed. MARIFER/ALY DR: Angel TID: [id number]
== END 2021-11-26 15:09 | disposition home or self-care (01) | DRG 246 ==
LOC: ER 03:54 → 6 SOUTH 04:58
PROVIDERS: ADMIT Family Medicine; ATTEND Family Medicine
PROC: 4A023N7 Measurement of Cardiac Sampling and Pressure, Left Heart, Percutaneous Approach (ICD-10-PCS; principal; 2021-11-25)
PROC: 027135Z Dilation of Coronary Artery, Two Arteries with Two Drug-eluting Intraluminal Devices, Percutaneous Approach (ICD-10-PCS; 2021-11-25)
PROC: B2111ZZ Fluoroscopy of Multiple Coronary Arteries using Low Osmolar Contrast (ICD-10-PCS; 2021-11-25)
PROC: B241ZZ3 Ultrasonography of Multiple Coronary Arteries, Intravascular (ICD-10-PCS; 2021-11-25)
DX: I21.4 Non-ST elevation (NSTEMI) myocardial infarction (principal); I50.33 Acute on chronic diastolic (congestive) heart failure; E66.9 Obesity, unspecified; Z68.37 Body mass index [BMI] 37.0-37.9, adult; E78.5 Hyperlipidemia, unspecified; F17.210 Nicotine dependence, cigarettes, uncomplicated; R03.0 Elevated blood-pressure reading, without diagnosis of hypertension; R73.9 Hyperglycemia, unspecified; F41.9 Anxiety disorder, unspecified; I25.10 Atherosclerotic heart disease of native coronary artery without angina pectoris; Z87.442 Personal history of urinary calculi; Z95.5 Presence of coronary angioplasty implant and graft; Z86.19 Personal history of other infectious and parasitic diseases; Z88.5 Allergy status to narcotic agent
CPT/HCPCS: 92928; 92978; 93458; 96365; 96375; 96376; 99291; C8929; G0269; 36415; 37253; 71045; 80053; 80061; 83880; 84484; 85025; 85347; 85379; 85610; 85730; 93005; 99152; 99153; C1725; C1753; C1769; C1874; C1894; J0360; J1644; J2250; J2270; J3010; J3490; J7030; Q9956; Q9967; C9600; G0378; J3246